=== PATIENT | male | born 1965 | race African-American/Black ===

== ENCOUNTER 2019-12-19 18:07 | Inpatient (IN) | payer OTHER ==
[~2019-12-19] VITALS: Ht 190.5 cm; Wt 151.5 kg
[2019-12-19 18:08] VITALS: BP 144/91
[2019-12-19] MEDS ORDERED: LISINOPRIL2.5 MG (18:26)
[2019-12-19] MEDS ORDERED: CARVEDILOL12.5 MG (18:26)
[2019-12-19] MEDS ORDERED: LANOXIN125 MCG (18:26)
[2019-12-19 18:59] LABS: ABSOLUTE NEUTROPHILS 4.9 thou/uL (1.4-8.2); BASOPHILS 0.8 % (0.0-2.0); EOSINOPHILS 0.7 % (0.0-3.0); HEMATOCRIT 35.2 % (42.0-52.0); HEMOGLOBIN 12.1 gm/dL (14.0-18.0); LYMPHOCYTES 16.3 % (24.0-44.0); MCH 32.7 pg (26.0-34.0); MCHC 34.3 g/dL (28.0-37.0); MCV 95.3 fL (80.0-100.0); MONOCYTES 11.4 % (1.0-8.0); PLATELET COUNT 146 thou/uL (150-400); POLYS 70.8 % (36.0-66.0); RBC 3.69 mil/uL (4.50-6.00); RDW 17.2 % (10.5-14.5)
[2019-12-19 19:15] LABS: APTT 30.8 Seconds (24.5-32.8); INR 1.4; PROTIME 13.9 Seconds (9.3-11.4)
[2019-12-19 19:28] LABS: ALBUMIN 2.6 g/dL (3.4-5.0); CALCIUM 7.1 mg/dL (8.5-10.1); CREATININE 1.3 mg/dL (0.7-1.3); TOTAL BILIRUBIN 2.7 mg/dL (0.2-1.0); TOTAL PROTEIN 7.5 g/dL (6.4-8.2); TROPONIN-I 0.11 ng/mL (<0.06)
[2019-12-19 19:30] LABS: MAGNESIUM 0.7 mg/dL (1.8-2.4); POTASSIUM 2.1 mmol/L (3.5-5.1)
[2019-12-20 02:15] LABS: URINE BILIRUBIN NEGATIVE (Negative); URINE BLOOD NEGATIVE (Negative); URINE CLARITY CLEAR; URINE COLOR YELLOW; URINE GLUCOSE-RANDOM* NEGATIVE (Negative); URINE KETONES NEGATIVE (Negative); URINE LEUKOCYTES-REFLEX NEGATIVE (Negative); URINE NITRITE-REFLEX NEGATIVE (Negative); URINE PROTEIN (DIPSTICK) NEGATIVE (Negative); URINE SPECIFIC GRAVITY <= 1.005 (1.005-1.035)
[2019-12-20 02:25] LABS: AMP/METHAMP Negative (Negative); BARBITURATES Negative (Negative); BENZODIAZEPINES Negative (Negative); COCAINE Negative (Negative); METHADONE Negative (Negative); OPIATES Negative (Negative); PCP Negative (Negative)
[2019-12-20 02:39] LABS: CALCIUM 6.3 mg/dL (8.5-10.1); CREATININE 1.1 mg/dL (0.7-1.3)
[2019-12-20 02:47] LABS: POTASSIUM 2.6 mmol/L (3.5-5.1)
--- NOTE | 2019-12-20 07:38 | EKG ---
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[place], [place] : 1965 Requested By: Tessy Smith Order Number: [id number] MD: Andrae Robles Measurements Intervals [place] Rate: 110 P: 105 SC: 180 QRS: 26 QRSD: 128 T: -78 QT: 371 QTc: 503 Interpretive Statements Sinus tachycardia Couplet Aberrant conduction of SV complex(es) Probable left atrial enlargement IVCD, consider atypical LBBB No previous ECG available for comparison Electronically Signed On 12-20-2019 7:37:56 DESK ASSISTANT by Andrae Robles [email or web address] <ELECTRONICALLY SIGNED> By: Andrae Robles MD, FACC 12/20/19 0737 [id number] Andrae Robles MD, [facility] /EPI
[2019-12-20 14:51] VITALS: BP 122/85
[2019-12-20 15:30] VITALS: BP 126/85
--- NOTE | 2019-12-20 15:35 | EKG ---
[facility] [place] [address] ELECTROCARDIOGRAM REPORT Name: CASSIDY DOTSON Room #: 170-8 ADM IN M.R.#: [id number] Admission: 12/19/19 Attend Phys: Milo Rodriguez MD Discharge: Date of : 61 Report #: [id number] THIS REPORT FOR: cc: JOCELYNE - Bouchra family physician/PCP JOCELYNE - Bouchra family physician/PCP Andrae Robles MD [facility] THIS REPORT FOR: //name// [facility] ED Test Date: 2019-12-19 Test Time: 21:07:55 Pat Name: CASSIDY DOTSON Department: Room: 170 8 Gender: M 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[employer] : 1965 Requested By: Milo Rodriguez Order Number: [id number] MD: Andrae Robles Measurements Intervals [place] Rate: 103 P: 98 [place]: 198 QRS: 42 QRSD: 121 T: -83 QT: 384 QTc: 503 Interpretive Statements Sinus tachycardia Atrial premature complex Borderline prolonged [place] interval Left bundle branch block Compared to ECG 12/19/2019 18:55:29 Atrial premature complex(es) now present Aberrant conduction of supraventricular beat(s) no longer present Electronically Signed On 12-20-2019 15:35:30 CUSTOMER GREETER by Andrae Robles [email or web address] <ELECTRONICALLY SIGNED> By: Andrae Robles MD, FACC 12/20/19 1535 06 06 Andrae Robles MD, FAC /EPI
--- NOTE | 2019-12-20 16:48 | NUR ---
PATIENT ARRIVED AT 1530 FROM THE ER, ALERT AND ORIENTED*4. C/O FATIGUE, NO SLEEP SINCE YESTERDAY 7PM. VITALS ARE STABLE. PT DENIES PAIN AT THIS TIME. IV ON RIGHT AC IS INTACT AND PATENT, FLUIDS (NS) RESUMED AT 150ML/HR PER ORDER. PT HAS MILD TREMORS IN ISIS UPPER EXTREMITIES. TOOK A BATH WHEN HE ARRIVED ON THE UNIT. DENIES NAUSEA/ VOMITING / DIARRHEA. FALL PRECAUTIONS IN PLACE. HOURLY ROUNDING. CALL LIGHT WITHIN REACH.
[2019-12-20 17:30] VITALS: BP 127/91
[2019-12-20 22:58] LABS: CALCIUM 6.5 mg/dL (8.5-10.1); CREATININE 1.1 mg/dL (0.7-1.3)
[2019-12-20 23:17] LABS: POTASSIUM 2.9 mmol/L (3.5-5.1)
--- NOTE | 2019-12-21 07:30 | EKG ---
[facility] [place] [address] ELECTROCARDIOGRAM REPORT Name: CASSIDY DOTSON Room #: 452- ADM IN M.R.#: [id number] Admission: 12/19/19 Attend Phys: Alec Frank MD Discharge: Date of : 61 Report #: [id number] THIS REPORT FOR: cc: OJCELYNE - Bouchra family physician/PCP JOCELYNE - Bouchra family physician/PCP Cortes Dumas MD [facility] THIS REPORT FOR: //name// 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 : 1965 Requested By: Alec Frank Order Number: [id number] MD: Cortes Dumas Measurements Intervals [place] Rate: 90 P: 70 [place]: 203 QRS: 80 QRSD: 128 T: -64 QT: 403 QTc: 493 Interpretive Statements Sinus rhythm Ventricular premature complex Borderline prolonged [place] interval Poor R wave progression nonspecific ST and T wave abnormality Compared to ECG 12/19/2019 21:07:55 Ventricular premature complex(es) now present Sinus tachycardia no longer present Electronically Signed On 12-21-2019 7:29:56 HAZARDOUS WASTE MATERIAL TECHNICIAN by Cortes Dumas [email or web address] <ELECTRONICALLY SIGNED> By: Cortes Dumas MD, FACC 12/21/19728 4 4 Cortes Dumas MD, FAC /EPI
[2019-12-21 07:32] LABS: HEMATOCRIT 32.6 % (42.0-52.0); HEMOGLOBIN 10.8 gm/dL (14.0-18.0); MCH 32.3 pg (26.0-34.0); MCHC 33.3 g/dL (28.0-37.0); MCV 96.9 fL (80.0-100.0); RBC 3.36 mil/uL (4.50-6.00); RDW 17.4 % (10.5-14.5); WBC 5.2 thou/uL (4.0-11.0)
[2019-12-21 07:57] LABS: ALBUMIN 2.5 g/dL (3.4-5.0); CALCIUM 6.5 mg/dL (8.5-10.1); CREATININE 1.1 mg/dL (0.7-1.3); MAGNESIUM 1.6 mg/dL (1.8-2.4); TOTAL PROTEIN 7.1 g/dL (6.4-8.2); TROPONIN-I 0.13 ng/mL (<0.06)
[2019-12-21 08:02] LABS: POTASSIUM 2.9 mmol/L (3.5-5.1)
--- NOTE | 2019-12-21 08:22 | NUR ---
RECIEVED CRITICAL LAB NOTIFICATION FROM [facility] AT 0740. PROVIDER WAS PAGED. WHEN VITALS WERE ATTEMPTED TO BE TAKEN PATIENT WAS STILL NOT BACK FROM HIS ECHOCARDIOGRAM. PROVIDER IS AWARE AND IS ENTERING ORDERS. IV WAS DISLODGED AND D/C'D LAST NIGHT; IV WILL HAVE TO BE RESTARTED WHEN PATIENT RETURNS
--- NOTE | 2019-12-21 08:48 | 2DMMODE ---
[facility] [place] [address] 2 D/M-MODE ECHOCARDIOGRAM Name: CASSIDY DOTSON Room #: 452-P ADM IN M.R.#: [id number] Admission: 12/19/19 Attend Phys: Alec Frank MD Discharge: Date of : 61 Report #: [id number] THIS REPORT FOR: cc: JOCELYNE - No family physician/PCP JOCELYNE - No family physician/PCP Andrae Robles MD [facility] ~ APPROVED REPORT Study performed: 12/21/2019 07:59:05 EXAM: Comprehensive 2D, Doppler, and color-flow Echocardiogram Patient Location: Echo lab Room #: [facility] Status: routine BSA: 2.73 HR: 92 bpm BP: 127/91 mmHg Rhythm: NSR/PVCS Other Information Study Quality: Adequate Technically limited study due to morbid obesity. Indications Syncope. Hx: ICD, HTN. 2D Dimensions RVDd: 41.07 mm IVSd: 10.69 (7-11mm) LVOT Diam: 23.54 (18-24mm) LVDd: 71.93 mm PWd: 10.01 (7-11mm) Ascending Ao: 35.01 (22-36mm) LVDs: 65.38 (25-40mm) Aortic Root: 33.09 mm Volumes Left Atrial Volume (Systole) Single Plane 4CH: 119.02 mL Single Plane 2CH: 109.19 mL LA ESV Index: 57.00 mL/m2 Aortic Valve AoV Peak Keagan.: 1.12 m/s AO Peak Gr.: 5.02 mmHg LVOT Max P.[address] [facility] [address] [place] [address] 2 D/M-MODE ECHOCARDIOGRAM Name: CASSIDY DOTSON Room #: 452-P [facility] IN .R.#: [id number] Admission: 12/19/19 Attend Phys: Alec Frank MD Discharge: Date of : 61 Report #: [id number] LVOT Max V: 0.91 m/s KAITLIN Vmax: 3.54 cm2 Mitral Valve E/A Ratio: 1.7 MV Decel. Time: 109.27 ms MV E Max Keagan.: 0.81 m/s MV A Keagan.: 0.49 m/s MV PHT: 31.69 ms IVRT: 55.36 ms Pulmonary Valve PV Peak Keagan.: 0.98 m/s PV Peak Gr.: 3.81 mmHg Pulmonary Vein P Vein S: 0.75 m/s P Vein A: 0.38 m/s P Vein D: 0.74 m/s P Vein S/D Ratio: 1.01 Left Ventricle Left ventricle is severely dilated. There is normal left ventricular wall thickness. Left ventricular systolic function is severely decreased. LVEF is 20-25%. Moderate diastolic dysfunction is present. Right Ventricle Right ventricle is at the upper limits of normal. Device lead is present in the right ventricle. Atria Left atrium is moderately dilated. Right atrium is at the upper limits of normal. Aortic Valve Aortic valve is thickened and calcified. No aortic regurgitation is present. There is no aortic valvular stenosis. Mitral Valve The mitral valve is normal in structure. Mild mitral regurgitation. Tricuspid Valve The tricuspid valve is normal in structure. There is no tricuspid valve regurgitation noted. Unable to assess PA pressure. Pulmonic Valve [facility] [address] [place] [address] 2 D/M-MODE ECHOCARDIOGRAM Name: CASSIDY DOTSON Room #: 452-P ADM IN M.R.#: [id number] Admission: 12/19/19 Attend Phys: Alec Frank MD Discharge: Date of : 61 Report #: [id number] The pulmonary valve is normal in structure. Trace pulmonic regurgitation. Great Vessels The aortic root is normal in size. The ascending aorta is normal in size. IVC is not well visualized. Pericardium There is no pericardial effusion. <Conclusion> Severely dilated left ventricle, normal wall thickness Severe global hypokinesis, more prominent in the michael-septum Ejection fraction of 20-25% Right ventricle size in the upper limits of normal, moderately hypokinetic Moderate left atrial enlargement Mild aortic valve calcification without stenosis, trileaflet Mild mitral valve insufficiency No tricuspid valve insufficiency No pericardial effusion <ELECTRONICALLY SIGNED> By: Andrae Robles MD, [facility] 12/21/19846 6 Andrae Robles MD, [facility] /INF
[2019-12-21 09:00] VITALS: BP 144/93
--- NOTE | 2019-12-21 11:37 | NUR ---
Nutrition: screen for BMI 41.8. Pt reported UBW 330 lb. Hx of HTN, ETOH abuse. Pt reported appetite only fair for past couple of weeks, c/o nausea, no emesis. Intake est 50% at breakfast. K+ 2.9, albumin 2.5, BUN 6. MVI, thiamin, pepcid, IVF and other meds reviewed. Pt declined supplements at this time. Assessed at mild nutrition risk.
[2019-12-21 11:50] LABS: HEMATOCRIT 31.1 % (42.0-52.0); HEMOGLOBIN 10.5 gm/dL (14.0-18.0); MCH 32.8 pg (26.0-34.0); MCHC 33.8 g/dL (28.0-37.0); RBC 3.21 mil/uL (4.50-6.00); RDW 17.8 % (10.5-14.5); WBC 5.5 thou/uL (4.0-11.0)
[2019-12-21 12:17] LABS: ALBUMIN 2.6 g/dL (3.4-5.0); CALCIUM 6.4 mg/dL (8.5-10.1); CREATININE 1.1 mg/dL (0.7-1.3); MAGNESIUM 1.6 mg/dL (1.8-2.4); TOTAL PROTEIN 6.8 g/dL (6.4-8.2)
[2019-12-21 12:19] LABS: POTASSIUM 2.9 mmol/L (3.5-5.1)
--- NOTE | 2019-12-21 13:58 | NUR ---
PT ADMITTED RELATED TO DIZZINESS,NAUSEA AND VOMITING. CM REVIEWED CHART AND SPOKE WITH CARE TEAM. CM CALLED AND SPOKE WITH CARE TEAM THIS DAY. PT APPEARED TO BE A&O X4. CM ROLE INTRODUCED. PT INDICATED HE LIVES IN A HOUSE WITH HIS MOTHER AND DTR WITH NO STEPS TO ENTER AND 16 STEPS TO BASEMENT WHERE HE STAYS. 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 PT INDICATED HE PLANS TO RETURN HOME ONCE MEDICALLY STABLE. CARE TEAM INDICATED THAT PT MAY BE MEDICALLY STABLE TO DC HOME TOMORROW. PT INDICATED HE ANTICPATES NO NEEDS UPON DC. CM TO FOLLOW INDICATED WITH DC PLANNING.
[2019-12-21 15:12] VITALS: BP 116/76
--- NOTE | 2019-12-21 16:42 | NUR ---
WOO ORTEGAED TO REPORT CRITICAL K+ 2.9 ON PATIENT; PROVIDER WAS PAGED AND CALLED BACK AT 1640. PROVIDER STATED HE WILL PUT IN ORDERS FOR DINNERTIME. PATIENT WAS INFORMED
--- NOTE | 2019-12-21 17:01 | NUR ---
PATIENT VITALS ARE STABLE AT THIS MOMENT. NO CARDIAC EVENTS SEEN ON THE MONITOR. IVF INFUISNG ON R FA. DENIES PAIN AMD TOLERATES DIET WELL. WILL CONTINUE TO MONITOR PATIENT AND AWAIT FOR FURTHER ORDERS
[2019-12-21 17:02] VITALS: BP 123/48
[2019-12-21 19:57] VITALS: BP 126/94
--- NOTE | 2019-12-21 21:00 | NUR ---
During change of report the RN told this nurse that this patient has taken out 4 of his iv's. I asked pt. why he did not want a iv and he explained that he does not need it. This nurse also saw his tele monitor sitting on his nightstand and he did not want this nurse to reapply it. Pt. was educated on the importance of the monitor and he finally agreed to let staff reapply it. His K+ continues to be low and is requiring po replacement K+, but pt is not too happy about this either. I spoke to Gloria FRANKS about pt. and since the pt. will not allow an iv that it was ok to leave it out. Pt. offers no complaints of shortness of air. Up ad jessica in his room.
[2019-12-22 05:50] LABS: CALCIUM 6.6 mg/dL (8.5-10.1); CREATININE 1.1 mg/dL (0.7-1.3); MAGNESIUM 1.5 mg/dL (1.8-2.4)
[2019-12-22 05:53] LABS: POTASSIUM 2.9 mmol/L (3.5-5.1)
[2019-12-22 08:10] VITALS: BP 123/90
--- NOTE | 2019-12-22 13:41 | NUR ---
PT A&oX4, VSS, DENIES PAIN. PATIENT CONTINUES TO HAVE NO IV ACCESS. PATIENT MAY DISCHARGE DLAER TODAY. NO SIGNS OF DISRESS, WILL CONTINUE TO MONITOR.
[2019-12-22 16:07] LABS: CALCIUM 6.8 mg/dL (8.5-10.1); CREATININE 1.1 mg/dL (0.7-1.3); MAGNESIUM 1.5 mg/dL (1.8-2.4); POTASSIUM 3.1 mmol/L (3.5-5.1)
[2019-12-22 16:29] VITALS: BP 127/95
[2019-12-22] MEDS ORDERED: VITAMIN B-1100 M2 PO (17:09)
[2019-12-22] MEDS ORDERED: MELATONIN5 M1 PO (17:09)
[2019-12-22] MEDS ORDERED: K-DUR 20 MEQ T20 MEQ PO (17:09)
[2019-12-22] MEDS ORDERED: ACETAMINOPHEN325 M1 PO (17:09)
[2019-12-22] MEDS ORDERED: MIRALAX17 GM PO (17:09)
[2019-12-22] MEDS ORDERED: MAGNESIUM400 MG PO (17:09)
[2019-12-22] MEDS ORDERED: MULTIVITAMINS1 EAC7 PO (17:09)
[2019-12-22] MEDS ORDERED: PEPCID20 MG PO (17:09)
[2019-12-22 17:29] VITALS: BP 127/95
== END 2019-12-22 18:27 | disposition home or self-care (01) | DRG 91 ==
LOC: ER 18:07 → 4W 21:22 → EROBS 21:22 → 4W 12-20 15:49
PROVIDERS: Nurse Practitioner Family; Physician Assistant; ADMIT Internal Medicine; ATTEND Internal Medicine
DX: G72.3 Periodic paralysis (principal); E43 Unspecified severe protein-calorie malnutrition; I42.9 Cardiomyopathy, unspecified; Z68.41 Body mass index [BMI] 40.0-44.9, adult; I50.22 Chronic systolic (congestive) heart failure; F10.10 Alcohol abuse, uncomplicated; F12.10 Cannabis abuse, uncomplicated; Z20.828 Contact with and (suspected) exposure to other viral communicable diseases; E83.42 Hypomagnesemia; E83.51 Hypocalcemia; I50.9 Heart failure, unspecified; I11.0 Hypertensive heart disease with heart failure; E66.01 Morbid (severe) obesity due to excess calories; Z79.899 Other long term (current) drug therapy; Z95.0 Presence of cardiac pacemaker; Z71.6 Tobacco abuse counseling; Z71.51 Drug abuse counseling and surveillance of drug abuser
CPT/HCPCS: 10045